=== PATIENT | male | born 2005 | race Caucasian/White ===

== ENCOUNTER 2023-08-20 17:16 | Emergency (ER) | payer OTHER ==
[2023-08-20 17:41] VITALS: TEMP 99.3
--- NOTE | 2023-08-20 19:38 | XR ---
Right knee. HISTORY: Fall. COMPARISON: None. TECHNIQUE: 3 views of the right knee were obtained. FINDINGS: There is no fracture, dislocation or focal intraosseous abnormality. A small joint effusion cannot be excluded. There is no radiopaque foreign body. IMPRESSION: 1. No acute fracture or dislocation. 2 cannot exclude small joint effusion.
--- NOTE | 2023-08-20 19:50 | CT ---
EXAMINATION TYPE: CT brain gordo wo con DATE OF EXAM: 08/20/2023 COMPARISON: None HISTORY: FELL OFF SKAkella CT DLP: 1930.9 mGycm Automated exposure control for dose reduction was used. TECHNIQUE: CT scan of the head and cervical spine are performed without contrast. Findings: Head CT: Ventricles, basal cisterns and sulci over convexities within normal limits and there is no mass, mass effect or shift of midline structures. No abnormal density is seen throughout the brain parenchyma and there is no acute intra or extra-axia l hemorrhage. Posterior fossa including the brainstem, fourth ventricle and cerebellar pontine angles are grossly n ormal. The intraorbital contents appear normal and symmetric. Visualized paranasal sinuses are well aerated. CT cervical spine: Craniovertebral junction relationships and prevertebral soft tissues are normal. The cervical vertebral segments are normal in height and alignment and there is no fracture subluxati on. The disc spaces are well-maintained in height and there is no significant degenerative disc disease. The bony cervical canal is widely patent and there is no bony encroachment of the neural foramina. The paraspinal soft tissues unremarkable. IMPRESSION: 1. Head CT: No acute bleed or mass effect. 2. CT cervical spine: No acute trauma.
[2023-08-20] MEDS: HYDROcodone/APAP 5-325MG 1 EACH TAB PO STA (20:23)
--- NOTE | 2023-08-20 21:27 | ED ---
Lower Extremity Injury HPI - General Chief Complaint: Extremity Injury, Lower Stated Complaint: skateboard accident Time Seen by Provider: 08/20/23 17:45 Source: patient Mode of arrival: wheelchair Limitations: no limitations - History of Present Illness Initial Comments: 17-year-old male presents emergency department reporting right knee pain. Patient states that he was riding a skateboard down a hill when he fell off. He landed on his right knee and hit his head. He does not remember hitting his head. He denies losing consciousness. He does admit to headache and nausea. Denies any numbness, tingling or weakness in his extremity. Patient does have a large hematoma to the back of his head. He does not take any blood thinners. He has had difficulty putting weight onto the right knee. He does have some swelling to the knee. Not taking anything for pain at this time. He denies any hip or knee pain. no other alleviating, precipitating or modifying factors - Related Data Previous Rx's Medication Instructions Recorded HYDROcodone/APAP 5-325MG [Colby 1 tab PO Q6HR PRN 3 Days #12 tab 08/20/23 5-325] Ibuprofen [Motrin] 600 mg PO Q8HR PRN #30 tab 08/20/23 Allergies Allergy/AdvReac Type Severity Reaction Status Date / Time No Known Allergies Allergy Verified 08/20/23 17:41 Review of Systems ROS Statement: Those systems with pertinent positive or pertinent negative responses have been documented in the HPI. ROS Other: All systems not noted in ROS Statement are negative. Past Medical History Past Medical History: No Reported History History of Any Multi-Drug Resistant Organisms: None Reported Past Surgical History: No Surgical Hx Reported Past Psychological History: No Psychological Hx Reported Smoking Status: Current every day smoker, Vaper Past Alcohol Use History: Occasional Past Drug Use History: Marijuana General Exam Limitations: no limitations General appearance: alert, in no apparent distress Head exam: Present: normocephalic, other (Hematoma to the left occiput measuring 5 cm x 5 cm) Eye exam: Present: normal appearance, PERRL, EOMI. Absent: scleral icterus, conjunctival injection, periorbital swelling ENT exam: Present: normal exam, mucous membranes moist Neck exam: Present: normal inspection. Absent: tenderness, meningismus, lymphadenopathy Respiratory exam: Present: normal lung sounds bilaterally. Absent: respiratory distress, wheezes, rales, rhonchi, stridor Cardiovascular Exam: Present: regular rate, normal rhythm, normal heart sounds. Absent: systolic murmur, diastolic murmur, rubs, gallop, clicks GI/Abdominal exam: Present: soft, normal bowel sounds. Absent: distended, tenderness, guarding, rebound, rigid Extremities exam: Present: tenderness (Palpation of the right knee. There is associated joint swelling. Patient has no ankle or hip pain. Intact sensation. No overlying abrasion or laceration), normal capillary refill. Absent: pedal edema, joint swelling, calf tenderness Back exam: Present: normal inspection Neurological exam: Present: alert, oriented X3, CN II-XII intact Psychiatric exam: Present: normal affect, normal mood Skin exam: Present: warm, dry, intact, normal color. Absent: rash Course Vital Signs 08/20/23 08/20/23 17:38 22:06 Temperature 99.3 F Pulse Rate 67 89 Respiratory 18 16 Rate Blood Pressure 135/67 144/77 O2 Sat by Pulse 100 97 Oximetry Medical Decision Making - Medical Decision Making Was pt. sent in by a medical professional or institution (, PA, [employer], urgent care, hospital, or snf...) When possible be specific @ -No Did you speak to anyone other than the patient for history (EMS, parent, family, police, friend...)? What history was obtained from this source @ -No Did you review nursing and triage notes (agree or disagree)? Why? @ -I reviewed and agree with nursing and triage notes Were old charts reviewed (outside hosp., previous admission, EMS record, old EKG, old radiological studies, urgent care reports/EKG's, snf records)? Report findings @ -No old charts were reviewed Differential Diagnosis (chest pain, altered mental status, abdominal pain women, abdominal pain men, vaginal bleeding, weakness, fever, dyspnea, syncope, headache, dizziness, GI bleed, back pain, seizure, CVA, palpatations, mental health, musculoskeletal)? @ -Differential Musculoskeletal Muscular strain, contusion, ligament sprain, fracture, arthritis, septic arthritis, bursitis, cellulitis, muscle spasm, nerve compression, DVT, arterial occlusion, herpes zoster, electrolyte abnormality, tumor.... This is not meant to be in all inclusive list EKG interpreted by me (3pts min.). @ -Not done X-rays interpreted by me (1pt min.). @ -Yes and demonstrates no acute fracture. There is a joint effusion CT interpreted by me (1pt min.). @ -Yes and demonstrates no skull fracture or intracranial hemorrhage U/S interpreted by me (1pt. min.). @ -None done What testing was considered but not performed or refused? (CT, X-rays, U/S, labs)? Why? @ -None What meds were considered but not given or refused? Why? @ -None Did you discuss the management of the patient with other professionals (professionals i.e. , PA, [employer], lab, RT, psych nurse, social insurance specialist, sand operator, teacher, chief communications officer, case management rn)? Give summary @ -No Was smoking cessation discussed for >3mins.? @ -No Was critical care preformed (if so, how long)? @ -No Were there social determinants of health that impacted care today? How? (Homelessness, low income, unemployed, alcoholism, drug addiction, transporta tion, low edu. Level, literacy, decrease access to med. care, [facility], rehab)? @ -No Was there de-escalation of care discussed even if they declined (Discuss DNR or withdrawal of care, Hospice)? DNR status @ -No What co-morbidities impacted this encounter? (DM, HTN, Smoking, COPD, CAD, Cancer, CVA, ARF, Chemo, Hep., AIDS, mental health diagnosis, sleep apnea, morbid obesity)? @ -None Was patient admitted / discharged? Hospital course, mention meds given and route, prescriptions, significant lab abnormalities, going to OR and other pertinent info. @Upon arrival patient seen and evaluated in [facility]. Thorough history and physical exam was performed. Patient does go for CT of his head due to severe mechanism, external signs of trauma without recollection of the event. X-rays performed of the right knee. Results of the imaging are discussed with the patient. He will be placed in a knee immobilizer as there is high concern for ligamentous injury. He is to rest, ice and elevate the extremity. He will be prescribed pain medications to utilize for pain. Instructed to return for any new or worsening symptoms. Patient agreeable plan was discharged in stable condition Undiagnosed new problem with uncertain prognosis? @ -No Drug Therapy requiring intensive monitoring for toxicity (Heparin, Nitro, Insulin, Cardizem)? @ -No Were any procedures done? @ -No Diagnosis/symptom? @ -Acute fall off skateboard, acute right knee pain, acute right knee effusion, blunt head injury Acute, or Chronic, or Acute on Chronic? @ -Acute Uncomplicated (without systemic symptoms) or Complicated (systemic symptoms)? @ -Complicated Side effects of treatment? @ -No Exacerbation, Progression, or Severe Exacerbation? @ -No Poses a threat to life or bodily function? How? (Chest pain, [place], [place], pneumonia, PE, COPD, DKA, ARF, appy, cholecystitis, CVA, Diverticulitis, Homicidal, Suicidal, threat to staff... and all critical care pts) @ -No Disposition Clinical Impression: Fall, Right knee pain, Internal derangement of knee, Head injury, Scalp hematoma, Neck pain Disposition: HOME SELF-CARE Condition: Stable Instructions (If sedation given, give patient instructions): Concussion (ED), Knee Pain (ED) Additional Instructions: Please alternate taking the Motrin with the Colby. Rest, ice and elevate the extremity. Wear the knee immobilizer. Follow-up with the orthopedic office so they can perform further imaging Prescriptions: Ibuprofen [Motrin] 600 mg PO Q8HR PRN #30 tab PRN Reason: Pain HYDROcodone/APAP 5-325MG [Colby 5-325] 1 tab PO Q6HR PRN 3 Days #12 tab PRN Reason: Severe Breakthrough Pain Is patient prescribed a controlled substance at d/c from ED?: Yes When asked, does pt state using other controlled substances?: No If prescribed controlled substance>3 days was MAPS reviewed?: Prescribed <3 Days If opioid is for acute pain is fill amount 7 days or less?: Yes Referrals: Donny Jett MD [STAFF PHYSICIAN] - 1-2 days Time of Disposition: 21:34
[2023-08-20 22:08] VITALS: BP 144/77; PULSE 89; RESP 16
== END 2023-08-20 22:08 | disposition home or self-care (01) ==
LOC: EC 17:16
DX: S00.03XA Contusion of scalp, initial encounter (principal); M23.91 Unspecified internal derangement of right knee; M54.2 Cervicalgia; F17.290 Nicotine dependence, other tobacco product, uncomplicated; V00.131A Fall from skateboard, initial encounter; Y93.51 Activity, roller skating (inline) and skateboarding
CPT/HCPCS: 70450; 72125; 99284